=== PATIENT | male | born 1940 | race Caucasian/White ===

== ENCOUNTER 2016-06-27 09:00 | Outpatient (CLI) | payer MEDICARE, OTHER | END 2016-06-27 09:10 | LOC: LAB 09:00 | PROVIDERS: ATTEND Family Medicine | DX: E11.9 Type 2 diabetes mellitus without complications (principal) | CPT/HCPCS: 36415; 82043; 83036 ==

== ENCOUNTER 2016-10-29 09:27 | Outpatient (CLI) | payer MEDICARE, OTHER | END 2016-10-29 09:30 | LOC: LAB 09:27 | PROVIDERS: ATTEND Family Medicine | DX: E11.9 Type 2 diabetes mellitus without complications (principal) | CPT/HCPCS: 36415; 83036 ==

== ENCOUNTER 2017-05-01 08:33 | Outpatient (CLI) | payer MEDICARE, OTHER ==
[2017-05-01 09:25] LABS: eGFR (African) > 60; eGFR (Non-African) > 60
== END 2017-05-01 08:34 ==
LOC: LAB 08:33
PROVIDERS: ATTEND Family Medicine
DX: E11.9 Type 2 diabetes mellitus without complications (principal)
CPT/HCPCS: 36415; 80053; 80061; 83036

== ENCOUNTER 2017-08-28 08:47 | Outpatient (CLI) | payer MEDICARE, OTHER | END 2017-08-28 08:50 | LOC: LAB 08:47 | PROVIDERS: ATTEND Family Medicine | DX: E11.9 Type 2 diabetes mellitus without complications (principal) | CPT/HCPCS: 83036 ==

== ENCOUNTER 2017-12-30 08:29 | Outpatient (CLI) | payer MEDICARE, OTHER | END 2017-12-30 08:30 | LOC: LAB 08:29 | PROVIDERS: ATTEND Family Medicine | DX: E11.9 Type 2 diabetes mellitus without complications (principal) | CPT/HCPCS: 36415; 83036 ==

== ENCOUNTER 2018-04-01 16:12 | Outpatient (CLI) | payer MEDICARE, OTHER ==
[2018-04-01 16:50] LABS: MEAN CORPUSCULAR HEMOGLOBIN 31.9 pg (28.0-34.0)
[2018-04-01 16:51] LABS: BASOPHILS % 0.5 (0.0-1.5); EOSINOPHILS % 2.3 % (0.0-6.8); MONOCYTES % 7.5 % (0.0-11.0); NEUTROPHILS # 3.3 # k/uL (1.4-7.7)
[2018-04-02 02:40] LABS: TOTAL PROTEIN 7.3 g/dL (6.0-8.5)
--- NOTE | 2018-04-02 08:44 | Diagnostic Imaging Report ---
[facility]Y [facility] [id number] [facility].[address] [id number] Report Submission Date: Apr 01, 2018 4:44:40 PM CDT Patient Study Name: KAYODE AWAD Date: Apr 01, 2018 4:13:17 PM CDT Modality Type: DX Gender: M Description: CHEST : 36 Institution: [facility] Physician: JOY PEREZ Examination: PA and lateral chest. History: Evaluate lung lopez. SOA WORSENING X1 MONTH (Hx) Comparison exam: None available. Findings: PA and lateral views of the chest demonstrates a normal cardiac and mediastinal silhouette. Mildly tortuous aorta. No focal infiltrate. No blunting of the costophrenic margins. Osseous structures are appropriate for age. Impression: No acute pulmonary process. Electronically signed on Apr 01, 2018 4:44:40 PM CDT by: Scot ISLAS
== END 2018-04-01 16:15 ==
LOC: LAB 16:12
PROVIDERS: ATTEND Family Medicine
DX: R06.09 Other forms of dyspnea (principal)
CPT/HCPCS: 36415; 71046; 80053; 83880; 84484; 85025

== ENCOUNTER 2018-05-18 07:01 | Emergency (ER) | payer MEDICARE, OTHER ==
[2018-05-18] MEDS: OXYMETAZOLINE HCL 0.05% NASAL SPRAY NS ONE (07:15)
--- NOTE | 2018-05-18 07:44 | ED Physician Documentation ---
Epistaxis - HISTORIAN Historian: patient - HPI Stated Complaint: Epistaxis Chief Complaint: Nosebleed Onset: minutes Timing: better Location: left Severity: mild Further Comments: yes (77 year old male presents with complaint of nose bleed. 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) Allergies/Adverse Reactions: Allergies Allergy/AdvReac Type Severity Reaction Status Date / Time Penicillins Allergy Unknown Verified 05/18/18 07:05 Home Medications: Ambulatory Orders Medication Instructions Recorded Aspirin [Adult Aspirin] 81 mg PO DAILY 05/18/18 HYDROcodone /APAP 5/325 [[place] 1 - 2 each PO Q4 PRN 05/18/18 5/325] Potassium Chloride [Klor-Con M20] 40 meq PO BID 05/18/18 - SOCIAL HX Smoking History: non-smoker - FAMILY HX Family History: No - VITAL SIGNS Vital Signs: Vital Signs Temp Pulse Resp BP Pulse Ox 98.2 F 95 H 22 146/83 95 05/18/18 07:02 05/18/18 07:02 05/18/18 07:02 05/18/18 07:02 05/18/18 07:02 - REVIEWED ASSESSMENTS Nursing Assessment Reviewed: Yes Vitals Reviewed: Yes Progress - Progress Progress: Afrin spray to left nare No bleeding while in Er. ED Results Lab/Radiology - Orders Orders: ED Orders Category Date Time Status Oxymetazoline HCl [Afrin 0.05%] Med 05/18/18 07:09 Discontinued 1 spray NS NOW ONE Epistaxis Physical Exam - EXAM General Appearance: mild distress Nose: no active bleeding, no specific site found, dried blood. No: active bleeding (R), active bleeding (L) Mouth: lips nml, gums nml, pharynx nml Neuro/Psych: oriented x3 Respiratory: no resp distress, chest non-tender, breath sounds normal CVS: reg rate & rhythm, heart sounds normal, equal pulses, no murmur, no gallop, PMI nml, no JVD, no friction rub, 24 Skin: nml color, no skin rash Discharge Clincal Impression: Epistaxis Referrals: Beata Talley MD [Primary Care Provider] - 2 Days Additional Instructions: Do not pick or rub on your nose. If the bleed restarts, hold firm pressure to the side of the nare. Run the HUMIDIFIER in your home. Moisture in the air will help irritated, dry nasal mucosa. Apply vaseline or aquafor to the inside of the nares twice a day for the next 3 days. Keep your appointment with Dr Talley this afternoon. Condition: Stable Disposition: 01 HOME, SELF-CARE Decision to Admit: NO Decision Time: 07:43
[2018-05-18 08:08] VITALS: BP 110/71
== END 2018-05-18 07:45 | disposition home or self-care (01) ==
LOC: ED 07:01
DX: R04.0 Epistaxis (principal)
CPT/HCPCS: 99281; 99282

== ENCOUNTER 2018-05-18 13:54 | Outpatient (CLI) | payer MEDICARE, OTHER ==
[2018-05-18 08:08] VITALS: BP 110/71
[2018-05-18 14:29] LABS: eGFR (Non-African) > 60
== END 2018-05-18 13:59 | disposition home or self-care (01) ==
LOC: LAB 13:54
PROVIDERS: ATTEND Family Medicine
DX: I25.810 Atherosclerosis of coronary artery bypass graft(s) without angina pectoris (principal)
CPT/HCPCS: 36415; 80048

== ENCOUNTER 2018-07-20 10:44 | Outpatient (CLI) | payer MEDICARE, OTHER | END 2018-07-20 10:46 | LOC: LAB 10:44 | PROVIDERS: ATTEND Family Medicine | DX: E11.9 Type 2 diabetes mellitus without complications (principal) | CPT/HCPCS: 36415; 83036 ==

== ENCOUNTER 2018-10-20 08:53 | Outpatient (CLI) | payer MEDICARE, OTHER | END 2018-10-20 08:55 | LOC: LAB 08:53 | PROVIDERS: ATTEND Family Medicine | DX: E11.9 Type 2 diabetes mellitus without complications (principal) | CPT/HCPCS: 36415; 83036 ==

== ENCOUNTER 2019-02-23 08:41 | Outpatient (CLI) | payer MEDICARE, OTHER ==
[2019-02-23 09:09] LABS: A1C 6.6 % (<5.7)
[2019-02-23 09:16] LABS: HDL 46 mg/dL (>40); eGFR (Non-African) > 60
== END 2019-02-23 08:43 ==
LOC: LAB 08:41
PROVIDERS: ATTEND Family Medicine
DX: E11.9 Type 2 diabetes mellitus without complications (principal)
CPT/HCPCS: 36415; 80053; 80061; 83036